=== PATIENT | female | born 1940 | race Two or more races ===

== ENCOUNTER 2021-12-28 12:54 | Inpatient (IN) | payer BC, OTHER ==
[~2021-12-28] VITALS: Ht 152.4 cm; Wt 42.4 kg
[2021-12-28 13:39] LABS: Urine Bacteria NONE SEEN /hpf (None Seen); Urine Blood Negative /uL (Negative); Urine Specific Gravity 1.015 (1.001-1.035); Urine WBC 1 /hpf (0 - 5)
[2021-12-28 14:10] LABS: Basophils # (auto) 0.1 10 ^3/uL (0-0.2); Basophils % (auto) 0.6 % (0.0-2.0); Eosinophils # (auto) 0.1 10 ^3/uL (0-0.8); Eosinophils % (auto) 0.9 % (0.0-7.0); Hematocrit 32.2 % (36.0-46.0); Hemoglobin 10.5 g/dL (12.2-16.2); Lymphocytes # (auto) 0.8 10 ^3/uL (0.4-5.4); Lymphocytes % (auto) 8.8 % (10.0-50.0); Mean Corpuscular Hemoglobin 30.1 pg (28.0-32.0); Mean Corpuscular Hgb Conc. 32.5 g/dL (32.0-36.0); Mean Corpuscular Volume 92.5 fL (80.0-100.0); Monocytes # (auto) 0.5 10 ^3/uL (0-1.3); Monocytes % (auto) 5.1 % (0.0-12.0); Neutrophils # (auto) 7.7 10 ^3/uL (1.6-8.6); Neutrophils % (auto) 84.6 % (37.0-80.0); Red Blood Cells 3.48 10^6/uL (4.0-5.20); Red Cell Distribution Width 13.2 % (11.8-14.3); White Blood Cell 9.1 10^3/uL (4.4-10.8)
[2021-12-28 14:27] LABS: Calcium 8.4 mg/dL (8.5-10.1); Potassium 4.3 mmol/L (3.5-5.1)
[2021-12-28 14:31] LABS: BUN/Creatinine Ratio 18.3; Bilirubin, Total 0.4 mg/dL (0.2-1.0)
[2021-12-28] MEDS ORDERED: MORPHINE SULFATE INJ 2 MG/ml SYRG IV ONE (16:00)
[2021-12-28] MEDS ORDERED: ONDANSETRON HCL 4 MG/2 ML VIAL IV ONE (16:00)
[2021-12-28] MEDS ORDERED: SODIUM CHLORIDE 0.9% 1,000 ML IV ONE (16:00)
[2021-12-28] MEDS ORDERED: SODIUM CHLORIDE 0.9% 500 ML IVB ONE (16:00)
[2021-12-28 17:17] LABS: INR 1.08 (0.9-1.15); Partial Thromboplastin Time 32.8 sec (24.6-33.4)
[2021-12-28] MEDS ORDERED: HYDROcodone-ACET 5/325MG TAB PO PRN (19:30)
[2021-12-28] MEDS ORDERED: DOCUSATE SOD 100 MG CAP PO PRN (19:30)
[2021-12-28] MEDS ORDERED: AMIT-256 (22:54)
[2021-12-28] MEDS ORDERED: TRAZ50TA2 PO (22:54)
[2021-12-28] MEDS ORDERED: MECL-111 PO (22:54)
[2021-12-28] MEDS ORDERED: LISI-716 PO (22:54)
[2021-12-28] MEDS ORDERED: SUMA50TA16 PO (22:54)
[2021-12-29] MEDS: ONDANSETRON HCL 4 MG/2 ML VIAL IV PRN (00:27)
[2021-12-29] MEDS: MORPHINE SULFATE INJ 2 MG/ml SYRG IV PRN (00:29)
[2021-12-29 04:30] VITALS: BP 118/60
[2021-12-29 05:32] LABS: Basophils # (auto) 0 10 ^3/uL (0-0.2); Basophils % (auto) 0.4 % (0.0-2.0); Eosinophils # (auto) 0.1 10 ^3/uL (0-0.8); Eosinophils % (auto) 0.9 % (0.0-7.0); Hematocrit 28.6 % (36.0-46.0); Hemoglobin 9.6 g/dL (12.2-16.2); Lymphocytes # (auto) 1.3 10 ^3/uL (0.4-5.4); Mean Corpuscular Hemoglobin 30.9 pg (28.0-32.0); Mean Corpuscular Hgb Conc. 33.4 g/dL (32.0-36.0); Mean Corpuscular Volume 92.4 fL (80.0-100.0); Monocytes # (auto) 0.8 10 ^3/uL (0-1.3); Monocytes % (auto) 10.8 % (0.0-12.0); Neutrophils # (auto) 5.3 10 ^3/uL (1.6-8.6); Neutrophils % (auto) 70.9 % (37.0-80.0); Red Cell Distribution Width 13.1 % (11.8-14.3); White Blood Cell 7.5 10^3/uL (4.4-10.8)
[2021-12-29 05:51] LABS: Calcium 7.9 mg/dL (8.5-10.1); Potassium 4.4 mmol/L (3.5-5.1)
[2021-12-29] MEDS: ENOXAPARIN SOD 40 MG/0.4 ML SYRINGE SC SCH (15:13)
[2021-12-29 17:00] VITALS: BP 150/74
[2021-12-29 22:00] VITALS: BP 115/53
[2021-12-30 05:00] VITALS: BP 118/61
[2021-12-30 09:00] VITALS: BP 123/58
[2021-12-30] MEDS: ENOXAPARIN SOD 40 MG/0.4 ML SYRINGE SC SCH (12:48)
[2021-12-30 13:00] VITALS: BP 124/70
[2021-12-30 17:00] VITALS: BP 129/77
[2021-12-30] MEDS ORDERED: IOHEXOL 350 MG/ML 100ML IJ ONE (17:35)
[2021-12-30] MEDS: IPRATROPIUM BROM 0.5 MG/2.5ML INH SOL NEB SCH ×2 (18:40→23:24)
[2021-12-30] MEDS: ALBUTEROL SULF 2.5 MG/0.5ML(0.5%) NEB SOLN NEB SCH ×2 (18:40→23:24)
[2021-12-30 18:45] VITALS: BP 129/77
[2021-12-30] MEDS: BUDESONIDE (INHALATION) 0.5 MG/2 ML NEB NEB SCH (23:24)
[2021-12-31 05:10] VITALS: BP 139/76
[2021-12-31] MEDS: IPRATROPIUM BROM 0.5 MG/2.5ML INH SOL NEB SCH ×5 (06:05→22:00)
[2021-12-31] MEDS: BUDESONIDE (INHALATION) 0.5 MG/2 ML NEB NEB SCH ×2 (06:05→19:02)
[2021-12-31] MEDS: ALBUTEROL SULF 2.5 MG/0.5ML(0.5%) NEB SOLN NEB SCH ×5 (06:05→22:00)
[2021-12-31] MEDS: ONDANSETRON HCL 4 MG/2 ML VIAL IV PRN (06:32)
[2021-12-31] MEDS ORDERED: BUPIVACAINE W/ EPINEPH 0.25% INJ 50ML MDV ONE (08:12)
[2021-12-31] MEDS ORDERED: ceFAZolin 1GM/50ML 50 ML IV ONE ×2 (08:18→11:11)
[2021-12-31 09:00] VITALS: BP 128/56
[2021-12-31 09:14] LABS: Basophils # (auto) 0 10 ^3/uL (0-0.2); Basophils % (auto) 0.2 % (0.0-2.0); Eosinophils # (auto) 0 10 ^3/uL (0-0.8); Eosinophils % (auto) 0.2 % (0.0-7.0); Hemoglobin 9.4 g/dL (12.2-16.2); Lymphocytes # (auto) 0.7 10 ^3/uL (0.4-5.4); Lymphocytes % (auto) 6.2 % (10.0-50.0); Mean Corpuscular Hemoglobin 30.9 pg (28.0-32.0); Mean Corpuscular Hgb Conc. 33.7 g/dL (32.0-36.0); Mean Corpuscular Volume 91.9 fL (80.0-100.0); Monocytes % (auto) 9.8 % (0.0-12.0); Neutrophils # (auto) 8.8 10 ^3/uL (1.6-8.6); Neutrophils % (auto) 83.6 % (37.0-80.0); Nucleated Red Blood Cells % 0.1 %; Red Blood Cells 3.05 10^6/uL (4.0-5.20); Red Cell Distribution Width 12.7 % (11.8-14.3); White Blood Cell 10.5 10^3/uL (4.4-10.8)
[2021-12-31] MEDS ORDERED: levoFLOXacin 500MG 100 ML IV SCH (09:30)
[2021-12-31 09:37] LABS: BUN/Creatinine Ratio 25.4; Calcium 7.9 mg/dL (8.5-10.1); Potassium 3.6 mmol/L (3.5-5.1)
[2021-12-31] MEDS: ENOXAPARIN SOD 40 MG/0.4 ML SYRINGE SC SCH (10:00)
[2021-12-31] MEDS: SODIUM CHLORIDE 0.9% 1,000 ML IV SCH ×2 (11:11→22:12)
[2021-12-31] MEDS ORDERED: fentaNYL CITRATE 100 MCG/2 ML VL ONE (11:13)
[2021-12-31] MEDS ORDERED: MIDAZOLAM HCL 2MG/2ML 2ml VIAL (1mg/ml) ONE (11:13)
[2021-12-31] MEDS ORDERED: NITROGLYCERIN 0.4 MG SL TAB SL PRN ×2 (12:45)
[2021-12-31] MEDS ORDERED: MORPHINE SULFATE INJ 2 MG/ml SYRG IV PRN ×2 (12:45)
[2021-12-31] MEDS: SODIUM CHLOR 0.9% PF (SALINE LOCK) 10ML VIAL/SYR IV SCH ×2 (14:00→22:11)
[2021-12-31 16:38] VITALS: BP 135/72
[2021-12-31 20:10] VITALS: BP 113/62
[2021-12-31 22:00] VITALS: BP 113/62
[2022-01-01] VITALS (14 sets, daily range): BP systolic 93–151; BP diastolic 45–79
[2022-01-01 05:13] LABS: Basophils # (auto) 0 10 ^3/uL (0-0.2); Basophils % (auto) 0.4 % (0.0-2.0); Eosinophils # (auto) 0.1 10 ^3/uL (0-0.8); Eosinophils % (auto) 0.8 % (0.0-7.0); Hematocrit 28.5 % (36.0-46.0); Hemoglobin 9.7 g/dL (12.2-16.2); Lymphocytes # (auto) 0.7 10 ^3/uL (0.4-5.4); Lymphocytes % (auto) 7.7 % (10.0-50.0); Mean Corpuscular Hemoglobin 31.2 pg (28.0-32.0); Mean Corpuscular Volume 91.8 fL (80.0-100.0); Monocytes # (auto) 0.8 10 ^3/uL (0-1.3); Monocytes % (auto) 9.1 % (0.0-12.0); Neutrophils # (auto) 7.6 10 ^3/uL (1.6-8.6); Red Blood Cells 3.11 10^6/uL (4.0-5.20); Red Cell Distribution Width 12.9 % (11.8-14.3); White Blood Cell 9.3 10^3/uL (4.4-10.8)
[2022-01-01] MEDS: SODIUM CHLOR 0.9% PF (SALINE LOCK) 10ML VIAL/SYR IV SCH ×5 (05:28→21:33)
[2022-01-01 05:29] LABS: Albumin 2.6 g/dL (3.4-5.0); BUN/Creatinine Ratio 29.2; Calcium 7.8 mg/dL (8.5-10.1); Potassium 3.8 mmol/L (3.5-5.1)
[2022-01-01 05:32] LABS: Total Protein 6.1 g/dL (6.4-8.2)
[2022-01-01 06:09] LABS: INR 1.04 (0.9-1.15); Partial Thromboplastin Time 34.5 sec (24.6-33.4)
[2022-01-01] MEDS: BUDESONIDE (INHALATION) 0.5 MG/2 ML NEB NEB SCH ×2 (06:23→22:08)
[2022-01-01] MEDS: IPRATROPIUM BROM 0.5 MG/2.5ML INH SOL NEB SCH ×6 (06:23→22:08)
[2022-01-01] MEDS: ALBUTEROL SULF 2.5 MG/0.5ML(0.5%) NEB SOLN NEB SCH ×6 (06:23→22:08)
[2022-01-01] MEDS: ENOXAPARIN SOD 40 MG/0.4 ML SYRINGE SC SCH (10:00)
[2022-01-01] MEDS ORDERED: levoFLOXacin 250MG 50 ML IV ONE (10:45)
[2022-01-01] MEDS: MORPHINE SULFATE INJ 2 MG/ml SYRG IV PRN (10:58)
[2022-01-01] MEDS ORDERED: ceFAZolin 1GM/50ML 50 ML IV ONE (11:43)
[2022-01-01] MEDS ORDERED: BUPIVACAINE HCL 0.25% P/F 10 ML VIAL ONE (12:20)
[2022-01-01] MEDS ORDERED: fentaNYL CITRATE 100 MCG/2 ML VL ONE (12:22)
[2022-01-01] MEDS ORDERED: MORPHINE SULF PF 5 MG/10 ML VIAL ONE (12:22)
[2022-01-01] MEDS ORDERED: ePHEDrine SULFATE 50 MG/ML AMP ONE (12:22)
[2022-01-01] MEDS ORDERED: ONDANSETRON HCL 4 MG/2 ML VIAL ONE (12:22)
[2022-01-01] MEDS ORDERED: GLYCOPYRROLATE 0.2 MG/ML 1ML VIAL ONE (12:22)
[2022-01-01] MEDS ORDERED: MIDAZOLAM HCL 2MG/2ML 2ml VIAL (1mg/ml) ONE (12:22)
[2022-01-01] MEDS ORDERED: ONDANSETRON HCL 4 MG/2 ML VIAL IV PRN ×2 (14:15)
[2022-01-01] MEDS ORDERED: NALBUPHINE HCL 10 MG/1ml INJECTION SUBCUT PRN (14:15)
[2022-01-01] MEDS ORDERED: DexAMETHasone SOD PHOS 10MG/1ML VIAL INJ IV PRN (14:15)
[2022-01-01] MEDS ORDERED: NALOXONE HCL 0.4 MG/ML VIAL IV PRN (14:15)
[2022-01-01] MEDS ORDERED: diphenhdrAMINE HCL 50 MG/1 ML VL IV PRN (14:15)
[2022-01-01] MEDS ORDERED: KETAMINE 50mg/ML 10ml Vial (500mg/10ml) IV ONE (14:24)
[2022-01-01] MEDS: LACTATED RINGER'S 1,000 ML IV SCH (16:53)
[2022-01-01] MEDS: ceFAZolin 1GM/50ML 50 ML IV SCH ×2 (16:54→18:00)
[2022-01-02] VITALS (23 sets, daily range): BP systolic 99–146; BP diastolic 43–89
[2022-01-02] MEDS: ceFAZolin 1GM/50ML 50 ML IV SCH (01:01)
[2022-01-02 05:26] LABS: Basophils # (auto) 0 10 ^3/uL (0-0.2); Basophils % (auto) 0.1 % (0.0-2.0); Eosinophils # (auto) 0 10 ^3/uL (0-0.8); Hemoglobin 7.3 g/dL (12.2-16.2); Lymphocytes # (auto) 0.4 10 ^3/uL (0.4-5.4); Monocytes # (auto) 0.5 10 ^3/uL (0-1.3); Monocytes % (auto) 5.4 % (0.0-12.0); Neutrophils # (auto) 8.8 10 ^3/uL (1.6-8.6)
[2022-01-02] MEDS: SODIUM CHLOR 0.9% PF (SALINE LOCK) 10ML VIAL/SYR IV SCH ×6 (05:27→22:00)
[2022-01-02 05:30] LABS: Hematocrit 21.7 % (36.0-46.0); Lymphocytes % (auto) 4.2 % (10.0-50.0); Mean Corpuscular Hgb Conc. 33.5 g/dL (32.0-36.0); Mean Corpuscular Volume 92.7 fL (80.0-100.0); Neutrophils % (auto) 90.3 % (37.0-80.0); Red Blood Cells 2.34 10^6/uL (4.0-5.20); Red Cell Distribution Width 12.8 % (11.8-14.3); White Blood Cell 9.8 10^3/uL (4.4-10.8)
[2022-01-02 05:40] LABS: Albumin 2.1 g/dL (3.4-5.0); Magnesium 1.7 mg/dL (1.6-2.6); Potassium 4.2 mmol/L (3.5-5.1)
[2022-01-02 05:44] LABS: BUN/Creatinine Ratio 28.2; Bilirubin, Total 0.6 mg/dL (0.2-1.0); Total Protein 4.8 g/dL (6.4-8.2)
[2022-01-02] MEDS: ALBUTEROL SULF 2.5 MG/0.5ML(0.5%) NEB SOLN NEB SCH ×5 (06:12→23:24)
[2022-01-02] MEDS: IPRATROPIUM BROM 0.5 MG/2.5ML INH SOL NEB SCH ×5 (06:12→23:24)
[2022-01-02] MEDS: BUDESONIDE (INHALATION) 0.5 MG/2 ML NEB NEB SCH ×2 (06:12→23:24)
[2022-01-02] MEDS: LACTATED RINGER'S 1,000 ML IV SCH ×3 (10:00→20:00)
[2022-01-02] MEDS: ENOXAPARIN SOD 40 MG/0.4 ML SYRINGE SC SCH (10:38)
[2022-01-02] MEDS: levoFLOXacin 250MG 50 ML IV SCH (10:38)
[2022-01-03] VITALS (7 sets, daily range): BP systolic 109–156; BP diastolic 69–89
[2022-01-03] MEDS: LACTATED RINGER'S 1,000 ML IV SCH ×2 (04:51→16:00)
[2022-01-03] MEDS: SODIUM CHLOR 0.9% PF (SALINE LOCK) 10ML VIAL/SYR IV SCH ×6 (04:52→23:14)
[2022-01-03 06:03] LABS: Hematocrit 27.9 % (36.0-46.0); Hemoglobin 9.5 g/dL (12.2-16.2)
[2022-01-03] MEDS: BUDESONIDE (INHALATION) 0.5 MG/2 ML NEB NEB SCH ×2 (06:22→20:01)
[2022-01-03] MEDS: IPRATROPIUM BROM 0.5 MG/2.5ML INH SOL NEB SCH ×5 (06:22→22:38)
[2022-01-03] MEDS: ALBUTEROL SULF 2.5 MG/0.5ML(0.5%) NEB SOLN NEB SCH ×5 (06:22→22:38)
[2022-01-03] MEDS: ENOXAPARIN SOD 40 MG/0.4 ML SYRINGE SC SCH (09:25)
[2022-01-03] MEDS: levoFLOXacin 250MG 50 ML IV SCH (09:25)
[2022-01-04] MEDS: LACTATED RINGER'S 1,000 ML IV SCH (03:53)
[2022-01-04 05:00] VITALS: BP 92/53
[2022-01-04] MEDS: SODIUM CHLOR 0.9% PF (SALINE LOCK) 10ML VIAL/SYR IV SCH ×4 (05:04→15:43)
[2022-01-04] MEDS: IPRATROPIUM BROM 0.5 MG/2.5ML INH SOL NEB SCH ×4 (06:16→18:04)
[2022-01-04] MEDS: ALBUTEROL SULF 2.5 MG/0.5ML(0.5%) NEB SOLN NEB SCH ×4 (06:16→18:04)
[2022-01-04 06:19] LABS: Hemoglobin 9.7 g/dL (12.2-16.2)
[2022-01-04 06:35] LABS: Albumin 2.3 g/dL (3.4-5.0); Calcium 8.2 mg/dL (8.5-10.1); Phosphorus 1.7 mg/dL (2.5-4.90); Potassium 3.9 mmol/L (3.5-5.1)
[2022-01-04 08:42] VITALS: BP 156/81
[2022-01-04] MEDS: BUDESONIDE (INHALATION) 0.5 MG/2 ML NEB NEB SCH (09:52)
[2022-01-04] MEDS: levoFLOXacin 250MG 50 ML IV SCH (10:19)
[2022-01-04] MEDS: ENOXAPARIN SOD 40 MG/0.4 ML SYRINGE SC SCH (10:20)
[2022-01-04 12:57] VITALS: BP 148/75
[2022-01-04 17:10] VITALS: BP 134/61
== END 2022-01-04 18:04 | DRG 480 ==
LOC: EDBD 12:54 → ER 12:54 → OVERFLOW 19:31 → WEST WING 12-29 16:28 → TELE-WESTW 12-31 14:08
PROVIDERS: ADMIT Nurse Practitioner Family; ATTEND Internal Medicine
PROC: BQ111ZZ Fluoroscopy of Left Hip using Low Osmolar Contrast (ICD-10-PCS; 2022-01-01)
PROC: 0QS734Z Reposition Left Upper Femur with Internal Fixation Device, Percutaneous Approach (ICD-10-PCS; principal; 2022-01-01 12:57)
PROC: 30233N1 Transfusion of Nonautologous Red Blood Cells into Peripheral Vein, Percutaneous Approach (ICD-10-PCS; 2022-01-02)
DX: S72.142A Displaced intertrochanteric fracture of left femur, initial encounter for closed fracture (principal); J96.01 Acute respiratory failure with hypoxia; E44.0 Moderate protein-calorie malnutrition; J44.1 Chronic obstructive pulmonary disease with (acute) exacerbation; Z68.1 Body mass index [BMI] 19.9 or less, adult; G43.909 Migraine, unspecified, not intractable, without status migrainosus; I10 Essential (primary) hypertension; D63.8 Anemia in other chronic diseases classified elsewhere; S00.83XA Contusion of other part of head, initial encounter; R29.6 Repeated falls; R00.0 Tachycardia, unspecified; Z20.822 Contact with and (suspected) exposure to COVID-19; F41.9 Anxiety disorder, unspecified; Z53.9 Procedure and treatment not carried out, unspecified reason; W18.39XA Other fall on same level, initial encounter; Y93.89 Activity, other specified; Y92.098 Other place in other non-institutional residence as the place of occurrence of the external cause; Y99.8 Other external cause status
CPT/HCPCS: 36415; 36600; 70450; 71045; 71275; 73502; 76000; 80048; 80053; 80069; 81001; 82805; 83735; 85014; 85018; 85025; 85610; 85730; 86850; 86900; 86901; 86920; 87426; 93005; 93306; 93970; 94640; 96361; 96372; 96374; 96375; 96376; 97110; 97116; 97163; G0378; J0690; J2250; J2405; J3490